=== PATIENT | female | born 1985 | race Caucasian/White ===

== ENCOUNTER 2016-08-30 18:26 | Emergency (ER) | payer OTHER ==
[2016-08-30 18:35] VITALS: BP 118/78; PULSE 95; RESP 16; TEMP 97.8; O2SAT 98
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
[2016-08-30] MEDS ORDERED: CYCLOBENZAPRINE HCL 10 MG TAB PO ONE (19:30)
[2016-08-30] MEDS ORDERED: traMADol HCL 50 MG TAB PO ONE (19:30)
[2016-08-30] MEDS ORDERED: NAPROXEN 500 MG TAB PO ONE (19:30)
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
[2016-08-30] MEDS ORDERED: NAPR500 PO (20:09)
[2016-08-30] MEDS ORDERED: CYCL1TAB29 PO (20:09)
== END 2016-08-30 20:25 | disposition home or self-care (01) ==
LOC: NEPB 18:26
DX: S09.90XA Unspecified injury of head, initial encounter (principal); S16.1XXA Strain of muscle, fascia and tendon at neck level, initial encounter; S50.12XA Contusion of left forearm, initial encounter; V49.40XA Driver injured in collision with unspecified motor vehicles in traffic accident, initial encounter; Y92.410 Unspecified street and highway as the place of occurrence of the external cause
CPT/HCPCS: 70450; 72125